=== PATIENT | male | born 1935 | race Caucasian/White ===

== ENCOUNTER 2017-01-12 10:37 | Emergency (ER) | payer MEDICARE, BC ==
[2017-01-12 11:51] LABS: CHLORIDE,CL 100 mmol/L (101-111); SODIUM,NA 136 mmol/L (135-145)
[2017-01-12 12:39] VITALS: BP 122/71
--- NOTE | 2017-01-12 15:23 | ER ---
SUBJECTIVE: The patient is an 81-year-old male with multiple chronic issues, who comes to the ER for sinus congestion. Yesterday, he had some mild upper chest wall pain, but nothing today. He does have an occasional cough. He usually sees Dr. Najera. He was sent to the ER today. He states sometimes pain shoot up into his sinuses around his head, especially his forehead, it usually happens in the afternoon around 03:00 p.m. He denies any falls or trauma. He denies any fevers. He has no chest pain now. No shortness of breath at this time. He is taking and tolerating his medicines okay. No syncope or near syncope. No headache right now. No ear pain. No changes in vision. PAST MEDICAL HISTORY: Significant for impaired vision, he wears glasses; hyperlipidemia; hypertension; CAD; [place]; pacemaker; chronic constipation; prostate disorder; he had a TURP. He has gout. He had arthroscopic knee surgery. He has hypothyroidism. He had a previous stroke. Depression. He has had chicken pox, measles, and mumps. He has hypothyroidism. He has GERD. Osteoarthritis. CURRENT MEDICATIONS: Include: 1. Lorazepam 0.5 mg p.o. b.i.d. 2. Levothyroxine 75 mcg daily. 3. Docusate sodium 2 tablets p.o. b.i.d. 4. Triamterene/HCTZ (37.5-25) one cap p.o. daily. 5. Lipitor 10 mg p.o. at bedtime. 6. Trazodone 100 mg p.o. at bedtime. 7. Extra-strength Tylenol p.r.n. 8. Aspirin 81 mg p.o. daily. 9. Coreg 25 mg p.o. b.i.d. 10.Cymbalta 60 mg p.o. daily. 11.Protonix 40 mg p.o. daily. 12.MiraLax p.r.n. 13.Oxycodone 10 mg p.o. b.i.d. ALLERGIES: He is allergic to codeine, he does not recall why. Simvastatin, also does not recall why. SOCIAL HISTORY: No tobacco, alcohol, or drug use. He lives at [facility]. He is retired. REVIEW OF SYSTEMS: No fevers or chills. No chest pain today. No shortness of breath. Did have some mild upper chest pain yesterday, and he also has some sinus symptoms and headache that goes to his forehead only in the afternoon. When asked when these symptoms occur and how long they have been occurring, he states for a very "longtime." When asked to clarify if this was days, weeks, or months, and he states "this has been going on for years." He denies any rash, any new bowel or bladder changes, falls, or trauma. He is able to take his medicines and tolerates them well. He is eating and drinking okay. OBJECTIVE: Vital Signs: Height is 1.75 m, weight is 88 kg. He is afebrile. Heart rate 79, blood pressure is 126/80, respiratory rate 16, oxygen is 99% on room air. General: Pleasant, no distress, very cooperative. He is appropriate. A and O x3. HEENT: Normocephalic and atraumatic. He does have some subjective fullness in his sinuses. No exact tenderness to palpation. The mastoids are unremarkable. Mucous membranes are moist. Conjunctivae are clear. Neck: Full range of motion. No nuchal rigidity. No lymphadenopathy. Chest: Clear. CV: RRR. Abdomen: Soft, benign. Back: No CVAT. Extremities: Lower extremities have no calf tenderness. LAB/STUDIES: An EKG shows a paced rhythm. He has first-degree AV block, no acute changes. A chest x-ray is obtained, it is does not show any acute findings. Blood work shows a normal white count. No anemia. Normal platelets. Normal differential. INR is 1.0. Electrolytes are quite unremarkable. Cardiac enzymes are also all normal. His BNP is unremarkable. He remained stable throughout his ER stay. I did discuss with Dr. Najera the patient's workup and findings. He would like to put the patient on Ceftin 500 mg p.o. b.i.d., for 1 week. He will see him next week in followup. The patient will continue with his current medicines. ASSESSMENT: 1. Acute versus chronic sinusitis. 2. Coronary artery disease with previous myocardial infarction. 3. Upper chest wall pain yesterday, workup unremarkable at this time. PLAN: Discharged back to home in stable condition, prescription for Ceftin 500 mg p.o. b.i.d. for 7 days given. Follow up with Dr. Najera next week. Continue with current medicines and care, fall precautions. Keep hydrated. Return for any emergent issues. [facility] /[id number]
--- NOTE | 2017-02-02 12:13 | EKG ---
01/12/2017 - MARY CORRALES - TIME OF EK hours. I reviewed the EKG and agree with the machine's reading. [facility] /[id number]
== END 2017-01-12 13:55 | disposition home or self-care (01) ==
LOC: DL.ED 10:37
DX: I25.10 Atherosclerotic heart disease of native coronary artery without angina pectoris (principal); I10 Essential (primary) hypertension; E03.9 Hypothyroidism, unspecified; I25.2 Old myocardial infarction; F32.9 Major depressive disorder, single episode, unspecified; M10.9 Gout, unspecified; K21.9 Gastro-esophageal reflux disease without esophagitis; M19.90 Unspecified osteoarthritis, unspecified site; Z88.5 Allergy status to narcotic agent; Z88.8 Allergy status to other drugs, medicaments and biological substances
CPT/HCPCS: 36415; 71020; 80053; 82550; 82553; 83880; 84484; 85025; 85610; 93005; 93010; 99284; 99285

== ENCOUNTER 2018-03-06 07:11 | Day surgery (SDC) | payer MEDICARE, BC ==
[~2018-03-06 07:11] MED LIST: Dextrose 5%-0.45% NaCl 1,000 ML IV SCH; Midazolam 1 MG/ML 2 ML SDV ONE; Sodium Chloride 0.9% 10 ML Syringe FLUSH PRN; fentaNYL 100 MCG/2 ML SDV ONE
[2018-03-06 08:26] VITALS: BP 143/85
--- NOTE | 2018-03-06 10:01 | PN ---
DATE: 03/06/2018 SUBJECTIVE: Dennis Monaco had some chest pain after arrival here, mostly on the left side, lasted for a few minutes with spontaneous resolution. On questioning, he admits to having this kind of pain on and off at least 4 to 5 times in the past month. Has not taken any nitroglycerin. No accompanying diaphoretic spells, palpitations, or shortness of breath. OBJECTIVE: Vital Signs: Stable vital signs. General: A bit anxious, alert, oriented, not short of breath at rest. Lungs: No adventitious sounds heard. Heart: S1 and S2, diminished in intensity. Abdomen: Soft. No areas of tenderness elicited. No CHF. PLAN: Chart reviewed. Medication list is scanned. Needs assessment of cardiac status before proceeding with EGD, to be scheduled later. The patient is sent to the emergency room for assessment of cardiac status and plan on EGD later dependent on his status. If no specific acute abnormalities noted, the patient to go back on Coumadin and to have EGD rescheduled later. Management plan discussed with the patient, and he is acceptable. IMPRESSION: Coronary artery disease. [facility] /[id number]
== END 2018-03-06 07:52 | disposition other institution (70) ==
LOC: DL.ENDO 07:11
PROVIDERS: ATTEND Internal Medicine Gastroenterology
DX: R10.33 Periumbilical pain (principal); R10.10 Upper abdominal pain, unspecified; R12 Heartburn; R13.10 Dysphagia, unspecified; R07.89 Other chest pain; Z53.8 Procedure and treatment not carried out for other reasons; E66.09 Other obesity due to excess calories; E78.5 Hyperlipidemia, unspecified; K59.00 Constipation, unspecified; I25.10 Atherosclerotic heart disease of native coronary artery without angina pectoris; K21.9 Gastro-esophageal reflux disease without esophagitis; Z95.810 Presence of automatic (implantable) cardiac defibrillator; Z87.891 Personal history of nicotine dependence; Z86.73 Personal history of transient ischemic attack (TIA), and cerebral infarction without residual deficits; Z79.82 Long term (current) use of aspirin; Z79.899 Other long term (current) drug therapy; Z88.8 Allergy status to other drugs, medicaments and biological substances; Z88.5 Allergy status to narcotic agent
CPT/HCPCS: J7042

== ENCOUNTER 2018-03-06 08:04 | Emergency (ER) | payer MEDICARE, BC ==
[2018-03-06] MEDS ORDERED: Sodium Chloride 0.9% 10 ML Syringe FLUSH PRN (08:05)
--- NOTE | 2018-03-06 08:05 | EDM.PDOC ---
ED HPI GENERAL MEDICAL PROBLEM - General Chief Complaint: Chest Pain Stated Complaint: CHEST PAIN Time Seen by Provider: 03/06/18 08:05 Source of Information: Reports: Patient, Old Records, RN, RN Notes Reviewed History Limitations: Reports: No Limitations - History of Present Illness INITIAL COMMENTS - FREE TEXT/NARRATIVE: Pt arrives from [facility] with c/o chest pain. Pt was being prepped for endoscopy this morning, and when the nurse started his IV and flushed it he felt a pain in the left upper chest. He denies radiating pain, shortness of breath, nausea, or vomiting. Denies fever or chills. Pt states he has had similar Sx's on/off for several years. Onset: Today Duration: Resolved Prior to Arrival, Waxing/Waning Location: Reports: Chest Quality: Reports: Ache Severity: Moderate Improves with: Reports: None Worsens with: Reports: None Associated Symptoms: Reports: No Other Symptoms Left Chest Pain Score (Numeric/FACES): 6 - Related Data Allergies Allergy/AdvReac Type Severity Reaction Status Date / Time codeine Allergy Cannot Verified 03/06/18 07:39 Remember fluticasone [From Flonase] Allergy Hallucinati Verified 03/06/18 08:25 ons simvastatin Allergy Cannot Verified 03/06/18 07:39 Remember Home Meds: Home Meds LORazepam 0.5 mg PO BID 06/14/15 [History] Sennosides/Docusate Sodium [Senna-Docusate Sodium] 2 each PO BID 06/14/15 [ History] Triamterene/Hydrochlorothiazid [Triamterene-HCTZ 37.5-25 MG] 1 cap PO DAILY [History] traZODone 100 mg PO BEDTIME 06/14/15 [History] Aspirin [Halfprin] 81 mg PO BRK 01/12/17 [History] Carvedilol [Coreg] 25 mg PO BID 01/12/17 [History] DULoxetine [Cymbalta] 60 mg PO DAILY 01/12/17 [History] Pantoprazole Sodium [Protonix] 40 mg PO DAILY 01/12/17 [History] Polyethylene Glycol 3350 [Miralax] 17 gm PO DAILY 01/12/17 [History] oxyCODONE HCl [Oxycodone HCl] 10 mg PO BID 01/12/17 [History] Levothyroxine [Synthroid] 1 tab PO DAILY 03/05/18 [History] Mirabegron [Myrbetriq] 1 tab PO DAILY 03/05/18 [History] Nitroglycerin [Nitrostat] 1 tab SL ASDIRECTED PRN 03/05/18 [History] Tamsulosin HCl 1 tab PO BEDTIME 03/05/18 [History] Tetrahydrozoline HCl [Visine] 1 drop EYEBOTH ASDIRECTED 03/05/18 [History] Tolterodine Tartrate [Detrol LA] 1 tab PO DAILY 03/05/18 [History] Warfarin Sodium [Jantoven] 0.5 - 1 tab PO ASDIRECTED 03/05/18 [History] atorvaSTATin [Lipitor] 1 tab PO BEDTIME 03/05/18 [History] Past Medical History HEENT History: Reports: Impaired Vision Other HEENT History: wears glasses Cardiovascular History: Reports: CAD, High Cholesterol, Hypertension, [place], Pacemaker Respiratory History: Reports: None Gastrointestinal History: Reports: Chronic Constipation, GERD Genitourinary History: Reports: Prostate Disorder Musculoskeletal History: Reports: None, Gout, Other (See Below) Other Musculoskeletal History: degenerative joint disease Neurological History: Reports: CVA Psychiatric History: Reports: Depression Endocrine/Metabolic History: Reports: Hypothyroidism Hematologic History: Reports: None Immunologic History: Reports: None Oncologic (Cancer) History: Reports: Prostate Dermatologic History: Reports: None - Infectious Disease History Infectious Disease History: Reports: Chicken Pox, Measles, Mumps - Past Surgical History HEENT Surgical History: Reports: Cataract Surgery Cardiovascular Surgical History: Reports: Coronary Artery Bypass, Pacer GI Surgical History: Reports: Hernia, Inguinal, Other (See Below) Other GI Surgeries/Procedures: gastrostomy Male Surgical History: Reports: Prostate Biopsy, TURP-Transurethral Resection of Prostate Musculoskeletal Surgical History: Reports: Arthroscopic Knee, Other (See Below) Other Musculoskeletal Surgeries/Procedures:: knee surg Social & Family History - Family History Family Medical History: Noncontributory - Caffeine Use Caffeine Use: Reports: None - Living Situation & Occupation Living situation: Reports: Assisted Living Occupation: Retired ED ROS GENERAL - Review of Systems Review Of Systems: ROS reveals no pertinent complaints other than HPI. ED EXAM, GENERAL - Physical Exam Exam: See Below Exam Limited By: No Limitations General Appearance: Alert, WD/WN, No Apparent Distress, Anxious Eye Exam: Bilateral Eye: Normal Inspection Ears: Hearing Grossly Normal Nose: Normal Inspection, Normal Mucosa, No Blood Throat/Mouth: Normal Inspection, Normal Lips, Normal Teeth, Normal Gums, Normal Oropharynx, Normal Voice, No Airway Compromise Head: Atraumatic, Normocephalic Neck: Normal Inspection, Supple, Non-Tender, Full Range of Motion. No: Lymphadenopathy (L), Lymphadenopathy (R) Respiratory/Chest: No Respiratory Distress, Lungs Clear, Normal Breath Sounds, No Accessory Muscle Use, Chest Non-Tender Cardiovascular: Normal Peripheral Pulses, Regular Rate, Rhythm, No Edema, No Gallop, No JVD, No Murmur, No Rub GI/Abdominal: Normal Bowel Sounds, Soft, Non-Tender, No Organomegaly, No Distention, No Abnormal Bruit (Male) Exam: Deferred Rectal (Males) Exam: Deferred Back Exam: Normal Inspection, Full Range of Motion. No: CVA Tenderness (L), CVA Tenderness (R) Extremities: Normal Inspection, Normal Range of Motion, Non-Tender, Normal Capillary Refill, No Pedal Edema Neurological: Alert, Oriented, CN II-XII Intact, Normal Cognition, Normal Gait, No Motor/Sensory Deficits Psychiatric: Anxious Skin Exam: Warm, Dry, Intact, Normal Color, No Rash EKG INTERPRETATION EKG Date: 03/06/18 Time: 08:10 Rhythm: Other (PACED) Rate (Beats/Min): 78 Comparison: No Change Course - Vital Signs Last Recorded V/S: Last Vital Signs Temp 37.0 C 03/06/18 08:04 Pulse 74 03/06/18 08:04 Resp 18 03/06/18 08:04 BP 154/85 H 03/06/18 08:12 Pulse Ox 96 03/06/18 08:04 - Orders/Labs/Meds Orders: Active Orders 24 hr Category Date Time Status EKG 12 Lead [EKG Documentation Completion] [RC] STAT Care 03/06/18 08:05 Active Peripheral IV Care [RC] . DIRECTED Care 03/06/18 08:06 Active Nitroglycerin [Nitrostat] Med 03/06/18 08:06 Active 0.4 mg SL Q5M PRN Sodium Chloride 0.9% [Saline Flush] Med 03/06/18 08:05 Active 10 ml FLUSH ASDIRECTED PRN Peripheral IV Insertion Adult [OM.PC] Stat Oth 03/06/18 08:05 Ordered Medication Orders Nitroglycerin (Nitrostat) 0.4 mg SL Q5M PRN PRN Reason: Chest Pain Last Admin: 03/06/18 08:12 Dose: 0.4 mg Sodium Chloride (Saline Flush) 10 ml FLUSH ASDIRECTED PRN PRN Reason: Keep Vein Open Last Admin: 03/06/18 08:11 Dose: 10 ml Labs: Laboratory Tests 03/06/18 03/06/18 03/06/18 Range/Units 08:20 08:20 08:20 WBC 7.7 (5.0-10.0) 10^3/uL RBC 4.57 L (4.6-6.2) 10^6/uL Hgb 13.7 L D (14.0-18.0) g/dL Hct 41.3 (40.0-54.0) % MCV 90.4 (80-100) fL MCH 30.0 (27.0-34.0) pg MCHC 33.2 (33.0-35.0) g/dL Plt Count 210 (150-450) 10^3/uL Neut % (Auto) 75.2 (42.2-75.2) % Lymph % (Auto) 11.9 L (20.5-50.1) % [place] % (Auto) 8.8 H (2-8) % Eos % (Auto) 3.6 H (1.0-3.0) % Baso % (Auto) 0.5 (0.0-1.0) % PT 10.8 (9.0-12.0) SEC INR 1.1 (0.9-1.2) Sodium 136 (135-145) mmol/L Potassium 3.6 (3.6-5.0) mmol/L Chloride 98 L (101-111) mmol/L Carbon Dioxide 29.0 (21.0-31.0) mmol/L Anion Gap 12.6 BUN 17 (7-18) mg/dL Creatinine 0.8 (0.6-1.3) mg/dL Est Cr Clr Drug Dosing 71.19 mL/min Estimated GFR (MDRD) > 60 BUN/Creatinine Ratio 21.25 Glucose 112 H (74-105) mg/dL Calcium 8.9 (8.4-10.2) mg/dl Total Bilirubin 1.0 (0.2-1.0) mg/dL AST 21 (10-42) IU/L ALT 14 (10-60) IU/L Alkaline Phosphatase 58 (42-121) IU/L Troponin I < 0.02 (0.00-0.02) ng/ml Total Protein 6.8 (6.7-8.2) g/dl Albumin 3.6 (3.2-5.5) g/dl Globulin 3.2 Albumin/Globulin Ratio 1.13 Amylase 69 (28-100) U/L Lipase 19 L (22-51) U/L Meds: Medications Generic Name Dose Route Start Last Admin Trade Name Freq PRN Reason Stop Dose Admin Nitroglycerin 0.4 mg 03/06/18 08:06 03/06/18 08:12 Nitrostat SL 0.4 mg Q5M PRN Administration Chest Pain Sodium Chloride 10 ml 03/06/18 08:05 03/06/18 08:11 Saline Flush FLUSH 10 ml ASDIRECTED PRN Administration Keep Vein Open Discontinued Medications Generic Name Dose Route Start Last Admin Trade Name Freq PRN Reason Stop Dose Admin Aspirin 324 mg 03/06/18 08:06 03/06/18 08:10 Aspirin PO 03/06/18 08:07 324 mg ONETIME ONE Administration - Radiology Interpretation Free Text/Narrative:: CXR: sternotomy wires, pacer w/leads, no acute process; see Rad. report. - Re-Assessments/Exams Free Text/Narrative Re-Assessment/Exam: 03/06/18 08:54 Pt now pain free. Negative cardiac evaluation. Plan to D/C pt home with outpt. f /u this week with Dr. Najera. Departure - Departure Time of Disposition: 08:55 Disposition: Home, Self-Care 01 Condition: Good Clinical Impression: Atypical chest pain Instructions: Nonspecific Chest Pain, [id number] Forms: ED Department Discharge Additional Instructions: Resume your regularly prescribed medications. Follow up in clinic with your primary doctor this week for recheck and rescheduling of your endoscopy. Return to ER if chest pain returns or is worse at any time. - My Orders Last 24 Hours: My Active Orders 03/06/18 08:05 EKG 12 Lead [EKG Documentation Completion] [RC] STAT Sodium Chloride 0.9% [Saline Flush] 10 ml FLUSH ASDIRECTED PRN Peripheral IV Insertion Adult [OM.PC] Stat 03/06/18 08:06 Peripheral IV Care [RC] . DIRECTED Nitroglycerin [Nitrostat] 0.4 mg SL Q5M PRN - Assessment/Plan Last 24 Hours: My Active Orders 03/06/18 08:05 EKG 12 Lead [EKG Documentation Completion] [RC] STAT Sodium Chloride 0.9% [Saline Flush] 10 ml FLUSH ASDIRECTED PRN Peripheral IV Insertion Adult [OM.PC] Stat 03/06/18 08:06 Peripheral IV Care [RC] . DIRECTED Nitroglycerin [Nitrostat] 0.4 mg SL Q5M PRN
[2018-03-06] MEDS ORDERED: Nitroglycerin 0.4 MG Tab.SL SL PRN (08:06)
[2018-03-06] MEDS ORDERED: Aspirin 81 MG Tab.Chew PO ONE (08:06)
[2018-03-06 08:12] VITALS: BP 154/85
[2018-03-06 08:45] LABS: CHLORIDE,CL 98 mmol/L (101-111); SODIUM,NA 136 mmol/L (135-145)
--- NOTE | 2018-03-06 08:46 | CR ---
Medical history: 83-year-old male emergency department with chest pain. Interpretation: Cardiac pacemaker (leads intact); sternotomy wires; external human geography faculty member leads an d oxygen cannula. Wide mediastinum presumably reflecting AP technique unchanged since PA film of 12 January 2017. Platelike atelectasis right lung base reflecting less than optimal inspiratory effort. No new signs of heart failure, lung mass, focal lobar pneumonia or lobar collapse. No pneumothorax. CONCLUSION: Atelectasis right base. No other signs of new cardiopulmonary abnormality when compared t o 12 January 2017.
--- NOTE | 2018-03-11 07:38 | EKG ---
03/06/2018- MARY CORARLES - FINDINGS: A 12-lead EKG shows atrial ventricular paced rhythm, so no further interpretation done at this time. [facility] /[id number]
== END 2018-03-06 09:08 | disposition home or self-care (01) ==
LOC: DL.ED 08:04
DX: R07.89 Other chest pain (principal); I10 Essential (primary) hypertension; I25.2 Old myocardial infarction; Z88.5 Allergy status to narcotic agent
CPT/HCPCS: 36415; 71045; 80053; 82150; 83690; 84484; 85025; 85610; 93005; 93010; 99285; A9270; J7050

== ENCOUNTER → 2018-03-08 | Day surgery (SDC) | payer MEDICARE, BC ==
[~2018-03-08] MED LIST changes: +Midazolam 1 MG/ML 2 ML SDV IV ONE; -Sodium Chloride 0.9% 10 ML Syringe FLUSH PRN; +fentaNYL 100 MCG/2 ML SDV IV ONE
--- NOTE | 2018-03-08 10:34 | OR ---
DATE: 03/08/2018 PROCEDURES: Esophagogastroduodenoscopy and multiple pinch biopsies. INSTRUMENT USED: GIF-H180 Olympus video panendoscope. PREMEDICATIONS: Fentanyl 50 mcg intravenous, Versed 1 mg intravenous. Nasal 2 L O2 cannula. The procedure was done under pulse oximetry, BP recording, and machine silk screen printer. INDICATION: The patient with abdominal pain, dysphagia unexplained, and not responsive to medical measures, on PPI. DESCRIPTION OF PROCEDURE: Esophagogastroduodenoscopy is performed for detection of any active erosive lesions. Osei esophagus and/or malignancy also under consideration. H. pylori status to be determined, esophageal dilatations if indicated, endoscopic hemostasis therapy if needed. The scope was passed with ease. Adequate visualization of the esophagus was made from proximal to distal areas. No upper esophageal lesions identified. No distal esophageal stricture. No uphill or downhill esophageal varices. No Se[place]-Ge tear. No evidence of erosive esophagitis by [place] criteria. No esophageal polyp or tumor mass identified. Tertiary contractions of the esophagus were noted. Z-line was seen at around 40 cm distal to the oral verge, configuration consistent with grade 1 by ZAP classification. No proximal gastric varices noted. Gastric fundus examination by retroflexion showed diminutive benign-appearing polyps. No gastric ulcer, malignant mass, or vascular ectasia identified. Duodenal bulb showed no ulcer. Visualized second part of the duodenum was unremarkable. Multiple pinch biopsies were taken from the gastric antrum and proximal body and sent for PyloriTek test for H. pylori, and if negative in an hour, tissues to be sent for histopathology. No bleeding was noted from any of the visualized areas at the completion of examination. Photographs were taken of the duodenal bulb, gastric antrum, fundus, and distal esophagus. IMPRESSION: 1. Presbyesophagus. 2. Diminutive gastric fundic polyps. The patient tolerated the procedure well. [facility] /[id number]
[2018-03-08 10:46] VITALS: BP 153/97
== END | disposition home or self-care (01) ==
LOC: DL.ENDO 06:16
PROVIDERS: ATTEND Internal Medicine Gastroenterology
DX: R13.10 Dysphagia, unspecified (principal); K29.50 Unspecified chronic gastritis without bleeding; K22.8 Other specified diseases of esophagus; K31.7 Polyp of stomach and duodenum; E66.09 Other obesity due to excess calories; I25.10 Atherosclerotic heart disease of native coronary artery without angina pectoris; E78.5 Hyperlipidemia, unspecified; K21.9 Gastro-esophageal reflux disease without esophagitis; Z87.891 Personal history of nicotine dependence; Z79.82 Long term (current) use of aspirin; Z88.5 Allergy status to narcotic agent; Z88.8 Allergy status to other drugs, medicaments and biological substances
CPT/HCPCS: 43239; 87077; J2250; J3010; J7042; 88305; 88342

== ENCOUNTER 2021-11-20 09:36 | Inpatient (IN) | payer MEDICARE, BC ==
[2021-11-20 11:20] LABS: CORONAVIRUS COVID-19 NAA POSITIVE (NEGATIVE)
[2021-11-20 11:35] LABS: PTT,PARTIAL THROMBOPLSTIN TIME 32.3 SEC (22.0-34.0)
[2021-11-20 11:39] LABS: ANION GAP 12.7 mEq/L (7-13); CHLORIDE,CL 96 mmol/L (98-107); SODIUM,NA 135 mmol/L (136-145)
[2021-11-20] MEDS ORDERED: Dexamethasone 4 MG/ML SDV IVPUSH ONE (11:50)
[2021-11-20] MEDS ORDERED: Albuterol 6.7 GM Inhaler INH ONE (11:51)
[2021-11-20] MEDS ORDERED: Furosemide 20 MG/2 ML VIAL IVPUSH ONE (12:06)
[2021-11-20] MEDS ORDERED: Non-Formulary Medication 1 Each (Sennosides [Senokot] 8.6 MG Tablet) PO PRN (14:37)
[2021-11-20] MEDS ORDERED: Acetaminophen 500 MG Tab PO PRN ×2 (14:37)
[2021-11-20] MEDS ORDERED: Magnesium Hydroxide 400 MG/5 ML Susp 30 ML Cup PO PRN (14:37)
[2021-11-20] MEDS ORDERED: Docusate Sodium 100 MG Cap PO PRN (14:37)
[2021-11-20] MEDS ORDERED: Ondansetron 4 MG/2 ML SDV IVPUSH PRN (14:45)
[2021-11-20] MEDS ORDERED: REMDESIVIR 200 MG in Sodium Chloride 0.9% 250 ML IV ONE (15:00)
[2021-11-20] MEDS ORDERED: Water For Injection, Sterile 40 ML ONE (15:15)
[2021-11-20] MEDS: Pantoprazole 40 MG Tab.CR PO SCH (15:31)
[2021-11-20] MEDS: Lutein/Minerals/Vit A,C & E Tab PO SCH (17:33)
[2021-11-20] MEDS ORDERED: Non-Formulary Medication 1 Each (Vit A/Vit C/Vit E/Zinc/Copper [Preservision Areds Softgel PO SCH (18:00)
[2021-11-20] MEDS: traZODone 50 MG Tab PO SCH (20:46)
[2021-11-20] MEDS: Carvedilol 25 MG Tab PO SCH (20:46)
[2021-11-20] MEDS: Tamsulosin 0.4 MG Cap.ER PO SCH (20:46)
[2021-11-20] MEDS: atorvaSTATin 10 MG Tab PO SCH (20:47)
[2021-11-20] MEDS: oxyCODONE 5 MG Tab PO SCH (20:47)
[2021-11-21] MEDS: Levothyroxine 112 MCG Tab PO SCH (06:08)
[2021-11-21] MEDS: Pantoprazole 40 MG Tab.CR PO SCH ×2 (06:08→15:32)
[2021-11-21 07:27] LABS: ANION GAP 13.7 mEq/L (7-13); CHLORIDE,CL 96 mmol/L (98-107); SODIUM,NA 136 mmol/L (136-145)
[2021-11-21] MEDS ORDERED: Potassium Chloride 10 MEQ Tab.ER PO ONE (07:51)
[2021-11-21] MEDS: Lutein/Minerals/Vit A,C & E Tab PO SCH ×2 (09:39→18:19)
[2021-11-21] MEDS: Aspirin 81 MG Tab.EC PO SCH (09:41)
[2021-11-21] MEDS: Loratadine 10 MG Tab PO SCH (09:42)
[2021-11-21] MEDS: Hydrochlorothiazide/Triamterene 25-37.5 Tab PO SCH (09:42)
[2021-11-21] MEDS: Carvedilol 25 MG Tab PO SCH ×2 (09:43→20:20)
[2021-11-21] MEDS: oxyCODONE 5 MG Tab PO SCH ×2 (09:43→20:19)
[2021-11-21] MEDS: Cholecalciferol (Vitamin D3) 25 MCG Tab PO SCH (09:45)
[2021-11-21] MEDS: DULoxetine 30 MG Cap PO SCH (09:45)
[2021-11-21] MEDS: LORazepam 0.5 MG Tab PO SCH (09:46)
[2021-11-21] MEDS: Dexamethasone 4 MG/ML SDV IVPUSH SCH (09:49)
[2021-11-21] MEDS: Triamcinolone Acetonide 0.1% Crm 15 GM Tube TOP SCH (09:53)
[2021-11-21] MEDS: Polyethylene Glycol 3350 Powder 17 GM Packet PO SCH (09:55)
[2021-11-21] MEDS: Carboxymethylcellulose Sodium 1% Ophth Gel 0.4 ML UD EYEBOTH PRN (11:14)
[2021-11-21] MEDS ORDERED: Warfarin 5 MG Tab PO ONE (14:00)
[2021-11-21] MEDS ORDERED: Warfarin 5 MG Tab PO SCH (14:00)
[2021-11-21] MEDS: REMDESIVIR 100 MG in Sodium Chloride 0.9% 100 ML IV SCH (14:37)
[2021-11-21] MEDS: atorvaSTATin 10 MG Tab PO SCH (20:19)
[2021-11-21] MEDS: traZODone 50 MG Tab PO SCH (20:19)
[2021-11-21] MEDS: Tamsulosin 0.4 MG Cap.ER PO SCH (20:19)
[2021-11-22] MEDS: Levothyroxine 112 MCG Tab PO SCH (06:05)
[2021-11-22] MEDS: Pantoprazole 40 MG Tab.CR PO SCH ×2 (06:05→16:11)
[2021-11-22 07:05] LABS: ANION GAP 11.8 mEq/L (7-13); CHLORIDE,CL 97 mmol/L (98-107); SODIUM,NA 134 mmol/L (136-145)
[2021-11-22] MEDS: Polyethylene Glycol 3350 Powder 17 GM Packet PO SCH (09:05)
[2021-11-22] MEDS: Aspirin 81 MG Tab.EC PO SCH (09:06)
[2021-11-22] MEDS: Lutein/Minerals/Vit A,C & E Tab PO SCH ×2 (09:06→17:57)
[2021-11-22] MEDS: LORazepam 0.5 MG Tab PO SCH (09:08)
[2021-11-22] MEDS: Carvedilol 25 MG Tab PO SCH ×2 (09:08→21:21)
[2021-11-22] MEDS: oxyCODONE 5 MG Tab PO SCH ×2 (09:09→21:22)
[2021-11-22] MEDS: Hydrochlorothiazide/Triamterene 25-37.5 Tab PO SCH (09:12)
[2021-11-22] MEDS: Cholecalciferol (Vitamin D3) 25 MCG Tab PO SCH (09:12)
[2021-11-22] MEDS: DULoxetine 30 MG Cap PO SCH (09:12)
[2021-11-22] MEDS: Loratadine 10 MG Tab PO SCH (09:13)
[2021-11-22] MEDS: Dexamethasone 4 MG/ML SDV IVPUSH SCH (09:15)
[2021-11-22] MEDS: Carboxymethylcellulose Sodium 1% Ophth Gel 0.4 ML UD EYEBOTH PRN ×2 (09:20→21:22)
[2021-11-22] MEDS: Triamcinolone Acetonide 0.1% Crm 15 GM Tube TOP SCH (09:21)
[2021-11-22] MEDS ORDERED: guaiFENesin/Dextromethorphan 100-10 MG/5 ML Soln 5 ML Cup PO PRN (12:29)
[2021-11-22] MEDS ORDERED: Warfarin 2.5 MG Tab PO SCH (14:00)
[2021-11-22] MEDS ORDERED: Warfarin 2.5 MG Tab PO ONE (14:00)
[2021-11-22] MEDS: REMDESIVIR 100 MG in Sodium Chloride 0.9% 100 ML IV SCH (14:50)
[2021-11-22] MEDS: Tamsulosin 0.4 MG Cap.ER PO SCH (21:21)
[2021-11-22] MEDS: traZODone 50 MG Tab PO SCH (21:21)
[2021-11-22] MEDS: atorvaSTATin 10 MG Tab PO SCH (21:22)
[2021-11-23] MEDS: Pantoprazole 40 MG Tab.CR PO SCH ×2 (06:01→16:18)
[2021-11-23] MEDS: Levothyroxine 112 MCG Tab PO SCH (06:01)
[2021-11-23 06:24] LABS: ANION GAP 11.7 mEq/L (7-13); CHLORIDE,CL 97 mmol/L (98-107); SODIUM,NA 133 mmol/L (136-145)
[2021-11-23] MEDS ORDERED: Potassium Chloride 10 MEQ Tab.ER PO ONE (07:30)
[2021-11-23] MEDS: Cholecalciferol (Vitamin D3) 25 MCG Tab PO SCH (09:37)
[2021-11-23] MEDS: DULoxetine 30 MG Cap PO SCH (09:37)
[2021-11-23] MEDS: Loratadine 10 MG Tab PO SCH (09:37)
[2021-11-23] MEDS: Lutein/Minerals/Vit A,C & E Tab PO SCH ×2 (09:38→17:16)
[2021-11-23] MEDS: LORazepam 0.5 MG Tab PO SCH (09:38)
[2021-11-23] MEDS: Hydrochlorothiazide/Triamterene 25-37.5 Tab PO SCH (09:38)
[2021-11-23] MEDS: Aspirin 81 MG Tab.EC PO SCH (09:38)
[2021-11-23] MEDS: Carvedilol 25 MG Tab PO SCH ×2 (09:39→20:23)
[2021-11-23] MEDS: oxyCODONE 5 MG Tab PO SCH ×2 (09:40→20:22)
[2021-11-23] MEDS: Polyethylene Glycol 3350 Powder 17 GM Packet PO SCH (09:41)
[2021-11-23] MEDS: Triamcinolone Acetonide 0.1% Crm 15 GM Tube TOP SCH (09:43)
[2021-11-23] MEDS: Dexamethasone 4 MG/ML SDV IVPUSH SCH (09:44)
[2021-11-23] MEDS: Carboxymethylcellulose Sodium 1% Ophth Gel 0.4 ML UD EYEBOTH PRN ×2 (09:47→20:21)
[2021-11-23] MEDS ORDERED: REMDESIVIR 100 MG in Sodium Chloride 0.9% 100 ML IV SCH (12:00)
[2021-11-23] MEDS ORDERED: Warfarin 2.5 MG Tab PO ONE (14:00)
[2021-11-23] MEDS: traZODone 50 MG Tab PO SCH (20:21)
[2021-11-23] MEDS: Tamsulosin 0.4 MG Cap.ER PO SCH (20:22)
[2021-11-23] MEDS: atorvaSTATin 10 MG Tab PO SCH (20:23)
[2021-11-24] MEDS: Levothyroxine 112 MCG Tab PO SCH (05:34)
[2021-11-24] MEDS: Pantoprazole 40 MG Tab.CR PO SCH (05:34)
[2021-11-24 07:29] LABS: CHLORIDE,CL 97 mmol/L (98-107); SODIUM,NA 135 mmol/L (136-145)
[2021-11-24] MEDS ORDERED: REMDESIVIR 100 MG in Sodium Chloride 0.9% 100 ML IV SCH (09:00)
[2021-11-24] MEDS: Polyethylene Glycol 3350 Powder 17 GM Packet PO SCH (09:11)
[2021-11-24 09:14] VITALS: BP 123/84; PULSE 74
[2021-11-24] MEDS: Loratadine 10 MG Tab PO SCH (09:14)
[2021-11-24] MEDS: Carvedilol 25 MG Tab PO SCH (09:14)
[2021-11-24] MEDS: Cholecalciferol (Vitamin D3) 25 MCG Tab PO SCH (09:15)
[2021-11-24] MEDS: Lutein/Minerals/Vit A,C & E Tab PO SCH (09:16)
[2021-11-24] MEDS: Aspirin 81 MG Tab.EC PO SCH (09:16)
[2021-11-24] MEDS: oxyCODONE 5 MG Tab PO SCH (09:16)
[2021-11-24] MEDS: DULoxetine 30 MG Cap PO SCH (09:17)
[2021-11-24] MEDS: Hydrochlorothiazide/Triamterene 25-37.5 Tab PO SCH (09:18)
[2021-11-24] MEDS: LORazepam 0.5 MG Tab PO SCH (09:18)
[2021-11-24] MEDS: Dexamethasone 4 MG/ML SDV IVPUSH SCH (09:20)
[2021-11-24] MEDS: Carboxymethylcellulose Sodium 1% Ophth Gel 0.4 ML UD EYEBOTH PRN (09:24)
[2021-11-24] MEDS: Triamcinolone Acetonide 0.1% Crm 15 GM Tube TOP SCH (09:25)
[2021-11-24] MEDS ORDERED: Warfarin 5 MG Tab PO ONE (14:00)
== END 2021-11-24 11:45 | disposition home or self-care (01) | DRG 177 ==
LOC: DL.ED 09:36 → DL.MS 13:05 → OBSVTOIN 14:49
PROVIDERS: ADMIT Internal Medicine; ATTEND Internal Medicine
PROC: 3E0333Z Introduction of Anti-inflammatory into Peripheral Vein, Percutaneous Approach (ICD-10-PCS; principal; 2021-11-20)
PROC: XW033E5 Introduction of Remdesivir Anti-infective into Peripheral Vein, Percutaneous Approach, New Technology Group 5 (ICD-10-PCS; 2021-11-20)
DX: J02.9 Acute pharyngitis, unspecified (principal); R05.9 Cough, unspecified; R53.81 Other malaise; U07.1 COVID-19; R09.02 Hypoxemia; J96.01 Acute respiratory failure with hypoxia; E78.00 Pure hypercholesterolemia, unspecified; H54.7 Unspecified visual loss; I10 Essential (primary) hypertension; I25.10 Atherosclerotic heart disease of native coronary artery without angina pectoris; Z95.810 Presence of automatic (implantable) cardiac defibrillator; Z95.1 Presence of aortocoronary bypass graft; K59.09 Other constipation; K21.9 Gastro-esophageal reflux disease without esophagitis; F32.A Depression, unspecified; M19.90 Unspecified osteoarthritis, unspecified site; M10.9 Gout, unspecified; E03.9 Hypothyroidism, unspecified; Z98.49 Cataract extraction status, unspecified eye; Z85.46 Personal history of malignant neoplasm of prostate; Z88.5 Allergy status to narcotic agent; Z88.8 Allergy status to other drugs, medicaments and biological substances; Z79.82 Long term (current) use of aspirin; Z79.899 Other long term (current) drug therapy; Z79.890 Hormone replacement therapy; Z79.01 Long term (current) use of anticoagulants; I25.2 Old myocardial infarction; Z95.0 Presence of cardiac pacemaker; Z86.73 Personal history of transient ischemic attack (TIA), and cerebral infarction without residual deficits; Z28.82 Immunization not carried out because of caregiver refusal
CPT/HCPCS: 0240U; 36415; 71045; 80053; 82150; 83605; 83690; 83880; 84484; 85025; 85610; 85730; 86140; 93005; 96374; 96375; 99285; 99285-25; A9270-GY; G0378; J0248; J1100; J1940; J7050

== ENCOUNTER 2022-09-23 09:45 | Inpatient (IN) | payer MEDICARE, BC ==
[2022-09-23] MEDS ORDERED: Piperacillin/Tazobactam 3.375 GM in Sodium Chloride 0.9% 100 ML IV ONE (10:30)
[2022-09-23 10:45] LABS: PTT,PARTIAL THROMBOPLSTIN TIME 46.2 SEC (22.0-34.0)
[2022-09-23 10:49] LABS: CORONAVIRUS COVID-19 NAA NEGATIVE (NEGATIVE); RESPIRATORY SYNCYTIAL VIR NAA NEGATIVE (NEGATIVE)
[2022-09-23 10:55] LABS: CHLORIDE,CL 99 mmol/L (98-107); SODIUM,NA 136 mmol/L (136-145)
[2022-09-23 11:00] LABS: ESTIMATED GFR 75 mL/min (>=60)
[2022-09-23] MEDS ORDERED: Sodium Chloride 0.9% 1,000 ML IV ONE (11:00)
[2022-09-23] MEDS ORDERED: Magnesium Hydroxide 400 MG/5 ML Susp 30 ML Cup PO PRN (12:53)
[2022-09-23] MEDS ORDERED: Polyethylene Glycol 3350 Powder 17 GM Packet PO PRN (12:53)
[2022-09-23] MEDS ORDERED: Ketorolac 30 MG/ML SDV IVPUSH PRN (12:53)
[2022-09-23] MEDS ORDERED: Albuterol/Ipratropium 3.0-0.5 MG/3 ML Neb Soln NEB PRN (12:53)
[2022-09-23] MEDS ORDERED: Ondansetron 4 MG/2 ML SDV IVPUSH PRN (12:53)
[2022-09-23] MEDS ORDERED: Benzonatate 100 MG Cap PO PRN (12:59)
[2022-09-23] MEDS ORDERED: guaiFENesin/Dextromethorphan 100-10 MG/5 ML Soln 5 ML Cup PO PRN (12:59)
[2022-09-23] MEDS ORDERED: Dextrose 5%-0.45% NaCl 1,000 ML IV SCH (13:00)
[2022-09-23] MEDS ORDERED: hydrALAZINE 20 MG/ML SDV IVPUSH PRN (13:04)
[2022-09-23] MEDS ORDERED: Metoprolol Tartrate 5 MG/5 ML SDV IVPUSH PRN (13:04)
[2022-09-23] MEDS: Pantoprazole 40 MG Vial IVPUSH SCH ×2 (13:28→21:16)
[2022-09-23] MEDS: Piperacillin/Tazobactam 3.375 GM in Sodium Chloride 0.9% 100 ML IV SCH ×2 (17:41→23:38)
[2022-09-23] MEDS ORDERED: Warfarin 2 MG Tab PO ONE (18:00)
[2022-09-23] MEDS ORDERED: Acetaminophen 650 MG Supp RECTAL PRN (19:29)
[2022-09-23] MEDS ORDERED: Oxymetazoline 0.05% Nasal Spray 30 ML Bottle NASBOTH PRN (19:30)
[2022-09-23] MEDS: Saccharomyces Boulardii (Probiotic) 250 MG Cap PO SCH (20:57)
[2022-09-23] MEDS: Benzonatate 100 MG Cap PO SCH (20:57)
[2022-09-24] MEDS: HYDROmorphone 0.5 MG/0.5 ML Syringe IVPUSH PRN ×3 (02:47→11:28)
[2022-09-24] MEDS: Piperacillin/Tazobactam 3.375 GM in Sodium Chloride 0.9% 100 ML IV SCH ×3 (06:12→17:51)
[2022-09-24 06:44] LABS: ANION GAP 11.6 mEq/L (7-13)
[2022-09-24] MEDS: Sodium Chloride 0.9% 10 ML Syringe FLUSH PRN ×2 (09:03→11:29)
[2022-09-24] MEDS: Pantoprazole 40 MG Vial IVPUSH SCH ×2 (09:04→21:13)
[2022-09-24] MEDS: Saccharomyces Boulardii (Probiotic) 250 MG Cap PO SCH ×2 (09:08→21:11)
[2022-09-24] MEDS: Benzonatate 100 MG Cap PO SCH ×2 (09:08→21:11)
[2022-09-24] MEDS ORDERED: Atropine 1% Ophth Soln 5 ML BOTTLE SL PRN (11:00)
[2022-09-24] MEDS ORDERED: Ibuprofen 400 MG Tab PO PRN (11:20)
[2022-09-24] MEDS ORDERED: Warfarin 2.5 MG Tab PO SCH (14:00)
[2022-09-24] MEDS ORDERED: Benzocaine/Cetylpyridinium/Menthol Lozenge MUCMEM PRN (19:18)
[2022-09-24] MEDS ORDERED: Fluconazole/Normal Saline 200 MG in Premix Bag 1 BAG IV ONE (21:00)
[2022-09-25] MEDS: Piperacillin/Tazobactam 3.375 GM in Sodium Chloride 0.9% 100 ML IV SCH ×5 (00:13→23:53)
[2022-09-25] MEDS: Carbamide Peroxide 6.5% Otic Soln 15 ML Bottle EARLF SCH ×3 (01:51→21:37)
[2022-09-25] MEDS: HYDROmorphone 0.5 MG/0.5 ML Syringe IVPUSH PRN ×2 (02:25→10:26)
[2022-09-25 07:15] LABS: ANION GAP 11.3 mEq/L (7-13); CHLORIDE,CL 105 mmol/L (98-107); SODIUM,NA 143 mmol/L (136-145)
[2022-09-25 07:18] LABS: ESTIMATED GFR 88 mL/min (>=60)
[2022-09-25] MEDS: Acetaminophen 325 MG Tab PO PRN ×2 (09:00→21:34)
[2022-09-25] MEDS: Benzonatate 100 MG Cap PO SCH ×2 (09:02→21:35)
[2022-09-25] MEDS: Saccharomyces Boulardii (Probiotic) 250 MG Cap PO SCH ×2 (09:02→21:35)
[2022-09-25] MEDS: Pantoprazole 40 MG Vial IVPUSH SCH ×2 (09:11→21:46)
[2022-09-25] MEDS: Potassium Chloride 20 MEQ in Premix Bag 1 BAG IV SCH ×2 (09:13→21:50)
[2022-09-25] MEDS: Fluconazole/Normal Saline 100 MG in Premix Bag 1 BAG IV SCH (10:04)
[2022-09-25] MEDS ORDERED: BIOTENE SL PRN (10:41)
[2022-09-25] MEDS ORDERED: Emollient Combination No.71 177 ML Bottle TOP PRN (10:42)
[2022-09-25] MEDS ORDERED: Warfarin 5 MG Tab PO SCH (14:00)
[2022-09-25] MEDS: Sodium Chloride 0.9% 10 ML Syringe FLUSH PRN ×2 (21:45→23:53)
[2022-09-26] MEDS: HYDROmorphone 0.5 MG/0.5 ML Syringe IVPUSH PRN (05:48)
[2022-09-26] MEDS: Sodium Chloride 0.9% 10 ML Syringe FLUSH PRN ×3 (05:48→21:54)
[2022-09-26] MEDS: Piperacillin/Tazobactam 3.375 GM in Sodium Chloride 0.9% 100 ML IV SCH (05:55)
[2022-09-26 07:03] LABS: ANION GAP 15.2 mEq/L (7-13)
[2022-09-26] MEDS: Benzonatate 100 MG Cap PO SCH ×2 (08:50→21:38)
[2022-09-26] MEDS: Pantoprazole 40 MG Vial IVPUSH SCH ×2 (08:50→21:44)
[2022-09-26] MEDS: Saccharomyces Boulardii (Probiotic) 250 MG Cap PO SCH ×2 (08:50→21:38)
[2022-09-26] MEDS: Fluticasone NASAL Spray 16 GM Bottle NASBOTH SCH (08:50)
[2022-09-26] MEDS: Carbamide Peroxide 6.5% Otic Soln 15 ML Bottle EARLF SCH ×2 (09:00→21:51)
[2022-09-26] MEDS: Fluconazole/Normal Saline 100 MG in Premix Bag 1 BAG IV SCH (09:15)
[2022-09-26] MEDS: Potassium Chloride 20 MEQ in Premix Bag 1 BAG IV SCH ×2 (10:22→21:54)
[2022-09-26] MEDS ORDERED: Levofloxacin 250 MG Tab PO ONE (12:00)
[2022-09-27] MEDS: Acetaminophen 325 MG Tab PO PRN (05:07)
[2022-09-27] MEDS ORDERED: FLUCONAZOLE ONE (08:09)
[2022-09-27] MEDS ORDERED: SODIUM CHLORIDE ONE (08:09)
[2022-09-27 08:16] VITALS: PULSE 73
[2022-09-27] MEDS: Pantoprazole 40 MG Vial IVPUSH SCH (08:42)
[2022-09-27] MEDS: Sodium Chloride 0.9% 10 ML Syringe FLUSH PRN ×3 (08:45→08:58)
[2022-09-27] MEDS: Saccharomyces Boulardii (Probiotic) 250 MG Cap PO SCH (08:46)
[2022-09-27] MEDS: Benzonatate 100 MG Cap PO SCH (08:46)
[2022-09-27] MEDS: Fluconazole/Normal Saline 100 MG in Premix Bag 1 BAG IV SCH (08:48)
[2022-09-27] MEDS ORDERED: Levofloxacin 250 MG Tab PO SCH (09:00)
[2022-09-27] MEDS: Fluticasone NASAL Spray 16 GM Bottle NASBOTH SCH (09:57)
[2022-09-27] MEDS: Carbamide Peroxide 6.5% Otic Soln 15 ML Bottle EARLF SCH (09:57)
[2022-09-27 12:12] VITALS: BP 158/83
== END 2022-09-27 14:00 | DRG 177 ==
LOC: DL.ED 09:45 → DL.MS 12:30 → INTOOBSV 12:30 → DL.ED 12:31 → OBSVTOIN 12:50
PROVIDERS: ADMIT Internal Medicine; ATTEND Internal Medicine
DX: J69.0 Pneumonitis due to inhalation of food and vomit (principal); I69.391 Dysphagia following cerebral infarction; R13.10 Dysphagia, unspecified; J96.01 Acute respiratory failure with hypoxia; J02.9 Acute pharyngitis, unspecified; E87.6 Hypokalemia; R79.1 Abnormal coagulation profile; I10 Essential (primary) hypertension; K21.9 Gastro-esophageal reflux disease without esophagitis; M54.50 Low back pain, unspecified; G89.29 Other chronic pain; E78.5 Hyperlipidemia, unspecified; Z66 Do not resuscitate; Z20.822 Contact with and (suspected) exposure to COVID-19; Z88.8 Allergy status to other drugs, medicaments and biological substances; K59.09 Other constipation; I25.10 Atherosclerotic heart disease of native coronary artery without angina pectoris; Z79.890 Hormone replacement therapy; E03.9 Hypothyroidism, unspecified; F32.A Depression, unspecified; E78.00 Pure hypercholesterolemia, unspecified; R73.9 Hyperglycemia, unspecified; H54.7 Unspecified visual loss; R13.12 Dysphagia, oropharyngeal phase; H61.22 Impacted cerumen, left ear; I25.2 Old myocardial infarction; Z95.1 Presence of aortocoronary bypass graft; I69.321 Dysphasia following cerebral infarction; Z79.01 Long term (current) use of anticoagulants; Z79.899 Other long term (current) drug therapy; Z87.891 Personal history of nicotine dependence; Z95.810 Presence of automatic (implantable) cardiac defibrillator; Z85.46 Personal history of malignant neoplasm of prostate; Z88.5 Allergy status to narcotic agent; Z79.82 Long term (current) use of aspirin
CPT/HCPCS: 0241U; 36415; 51702; 71045; 80048; 80053; 83605; 83735; 83880; 84484; 85025; 85610; 85730; 86140; 87040; 87070; 87077; 87081; 87186; 87205; 87430; 92610; 93005; 96365; 97110; 97161; 97165; 97530; 99285; A9270-GY; C9113; J1170; J1450; J2543; J3480; J3490; J7030; J7620-GY

== ENCOUNTER 2023-10-16 16:14 | Emergency (ER) | payer MEDICARE, BC ==
[2023-10-16] MEDS ORDERED: Sodium Chloride 0.9% 10 ML Syringe FLUSH PRN (16:53)
[2023-10-16 17:08] LABS: BASOPHILS PERCENT AUTO 0.4 % (0.0-1.0); EOSINOPHILS PERCENT AUTO 2.4 % (1.0-3.0); HEMATOCRIT 44.1 % (40.0-54.0); HEMOGLOBIN 14.3 g/dL (14.0-18.0); LYMPHOCYTES PERCENT AUTO 12.7 % (20.5-50.1); MEAN CORPUSCULAR HEMOGLOBIN 29.9 pg (27.0-34.0); MEAN CORPUSCULAR HGB CONC 32.4 g/dL (33.0-35.0); MEAN CORPUSCULAR VOLUME 92.1 fL (80-100); MONOCYTES PERCENT AUTO 8.1 % (2-8); NEUTROPHILS PERCENT AUTO 76.4 % (42.2-75.2); PLATELET COUNT,PLT 245 10^3/uL (150-450); RED BLOOD CELL COUNT 4.79 10^6/uL (4.6-6.2); WHITE BLOOD CELL COUNT,WBC 11.1 10^3/uL (5.0-10.0)
[2023-10-16 17:15] LABS: CORONAVIRUS COVID-19 NAA NEGATIVE (NEGATIVE); INFLUENZA A NAA NEGATIVE (NEGATIVE); INFLUENZA B NAA NEGATIVE (NEGATIVE); RESPIRATORY SYNCYTIAL VIR NAA NEGATIVE (NEGATIVE)
[2023-10-16 17:16] LABS: INR 4.7 (0.9-1.2); PROTHROMBIN TIME 45.8 SEC (9.0-12.0); PTT,PARTIAL THROMBOPLSTIN TIME 58.5 SEC (22.0-34.0)
[2023-10-16 17:22] LABS: A/G RATIO 0.9; ALANINE AMINOTRANSFERASE,ALT 20 U/L (16-63); ALBUMIN 3.6 g/dL (3.4-5.0); ALKALINE PHOSPHATASE 82 U/L (46-116); ANION GAP 8.6 mEq/L (7-13); ASPARTATE AMNIOTRANSFERASE,AST 20 U/L (15-37); BILIRUBIN TOTAL 0.6 mg/dL (0.2-1.0); BLOOD UREA NITROGEN,BUN 20 mg/dL (7-18); BUN/CREATININE RATIO 21.7 (No establ ref range); C-REACTIVE PROTEIN 2.74 ng/dL (<=0.50); CALCIUM 8.8 mg/dL (8.5-10.1); CARBON DIOXIDE,CO2 34 mmol/L (21-32); CHLORIDE,CL 98 mmol/L (98-107); CREATININE 0.92 mg/dL (0.70-1.30); EST CRCL DRUG DOSING (CG) 56.57 mL/min; GLUCOSE RANDOM 106 mg/dL (70-99); LACTIC ACID 1.3 mmol/L (0.4-2.0); MAGNESIUM 1.9 mg/dL (1.8-2.4); POTASSIUM,K 3.6 mmol/L (3.5-5.1); PROTEIN TOTAL,TP 7.5 g/dL (6.4-8.2); SODIUM,NA 137 mmol/L (136-145)
[2023-10-16 17:24] LABS: ESTIMATED GFR 81 mL/min (>=60)
[2023-10-16 17:36] LABS: B-TYPE NATRIURETIC PEPTIDE,BNP 48 pg/ml (0-100)
[2023-10-16 17:38] LABS: APPEARANCE,URINE CLEAR (CLEAR); BILIRUBIN,URINE NEGATIVE (NEGATIVE); COLOR,URINE YELLOW (YELLOW); GLUCOSE,URINE NEGATIVE (NEGATIVE); KETONES,URINE NEGATIVE (NEGATIVE); LEUKOCYTE ESTERASE,URINE TRACE (NEGATIVE); NITRITE,URINE NEGATIVE (NEGATIVE); OCCULT BLOOD,URINE NEGATIVE (NEGATIVE); PROTEIN,URINE TRACE (NEGATIVE); UROBILINOGEN,URINE 0.2 mg/dL (0.2-1.0)
[2023-10-16 17:42] LABS: AMPHETAMINES,URINE NEGATIVE (NEGATIVE); BARBITURATES,URINE NEGATIVE (NEGATIVE); BENZODIAZEPINE,URINE POSITIVE (NEGATIVE); MDMA (ECSTASY), URINE NEGATIVE (NEGATIVE); METHADONE,URINE NEGATIVE (NEGATIVE); METHAMPHETAMINES,URINE NEGATIVE (NEGATIVE); OPIATES,URINE NEGATIVE (NEGATIVE); OXYCODONE,URINE NEGATIVE (NEGATIVE); PHENCYCLIDINE,URINE NEGATIVE (NEGATIVE); TCA,URINE NEGATIVE (NEGATIVE)
[2023-10-16 17:49] LABS: BACTERIA,URINE MODERATE /HPF (0-FEW/HPF); EPITHELIAL CELLS,URINE FEW /HPF (NOT SEEN); MUCUS,URINE MODERATE /LPF (NOT SEEN); RBC,URINE 0-5 /HPF (0-5)
[2023-10-16] MEDS ORDERED: Acetaminophen 500 MG Tab PO ONE (18:06)
[2023-10-16 18:42] VITALS: BP 143/81; PULSE 70
== END 2023-10-16 20:10 | disposition home or self-care (01) ==
LOC: DL.ED 16:14
DX: T82.7XXA Infection and inflammatory reaction due to other cardiac and vascular devices, implants and grafts, initial encounter (principal); L03.313 Cellulitis of chest wall; G89.29 Other chronic pain; I25.10 Atherosclerotic heart disease of native coronary artery without angina pectoris; I25.2 Old myocardial infarction; I10 Essential (primary) hypertension; E78.00 Pure hypercholesterolemia, unspecified; K21.9 Gastro-esophageal reflux disease without esophagitis; M10.9 Gout, unspecified; E03.9 Hypothyroidism, unspecified; Z86.16 Personal history of COVID-19; Z88.8 Allergy status to other drugs, medicaments and biological substances; Z88.5 Allergy status to narcotic agent; Z79.82 Long term (current) use of aspirin; Z79.899 Other long term (current) drug therapy; Z79.01 Long term (current) use of anticoagulants; Z20.822 Contact with and (suspected) exposure to COVID-19
CPT/HCPCS: 0241U; 36415; 71045; 80053; 80305-QW; 81001; 83605; 83735; 83880; 84145; 84484; 85025; 85610; 85730; 86140; 87040; 87070; 87077; 87086; 87088; 87186; 93005; 93010; 96365; 99284; 99284-25; A9270-GY; J3370; J3490; J7050

== ENCOUNTER 2023-11-04 13:30 | Emergency (ER) | payer MEDICARE, BC ==
[2023-11-04 14:25] VITALS: BP 123/72; PULSE 70
[2023-11-04] MEDS ORDERED: Lactulose Soln 10 GM/15 ML 30 ML UD Cup PO ONE (17:49)
[2023-11-04] MEDS ORDERED: Methylnaltrexone 12 MG/0.6 ML SDV SUBCUT ONE (17:49)
== END 2023-11-04 18:14 | disposition home or self-care (01) ==
LOC: DL.ED 13:30
DX: K59.00 Constipation, unspecified (principal); I25.10 Atherosclerotic heart disease of native coronary artery without angina pectoris; I10 Essential (primary) hypertension; I25.2 Old myocardial infarction; E78.00 Pure hypercholesterolemia, unspecified; M10.9 Gout, unspecified; E03.9 Hypothyroidism, unspecified; Z86.16 Personal history of COVID-19; Z79.82 Long term (current) use of aspirin; Z79.899 Other long term (current) drug therapy; Z79.01 Long term (current) use of anticoagulants; Z88.8 Allergy status to other drugs, medicaments and biological substances; Z88.5 Allergy status to narcotic agent
CPT/HCPCS: 74018; 96372; 99283; A9270-GY; J2212-GY

== ENCOUNTER 2023-11-14 09:07 | Inpatient (IN) | payer MEDICARE, BC ==
[2023-11-14 10:09] LABS: BASOPHILS PERCENT AUTO 0.1 % (0.0-1.0); HEMATOCRIT 45.7 % (40.0-54.0); HEMOGLOBIN 14.6 g/dL (14.0-18.0); LYMPHOCYTES PERCENT AUTO 4.8 % (20.5-50.1); MEAN CORPUSCULAR HEMOGLOBIN 29.9 pg (27.0-34.0); MEAN CORPUSCULAR HGB CONC 31.9 g/dL (33.0-35.0); MEAN CORPUSCULAR VOLUME 93.6 fL (80-100); MONOCYTES PERCENT AUTO 6.7 % (2-8); NEUTROPHILS PERCENT AUTO 88.4 % (42.2-75.2); PLATELET COUNT,PLT 216 10^3/uL (150-450); RED BLOOD CELL COUNT 4.88 10^6/uL (4.6-6.2); WHITE BLOOD CELL COUNT,WBC 19.5 10^3/uL (5.0-10.0)
[2023-11-14] MEDS: Sodium Chloride 0.9% 10 ML Syringe FLUSH PRN (10:18)
[2023-11-14] MEDS ORDERED: cefTRIAXone 1 GM Vial IVPUSH ONE (10:24)
[2023-11-14] MEDS ORDERED: Azithromycin 500 MG in Sodium Chloride 0.9% 250 ML IV ONE (10:24)
[2023-11-14 10:33] LABS: A/G RATIO 0.9; ALANINE AMINOTRANSFERASE,ALT 20 U/L (16-63); ALBUMIN 3.6 g/dL (3.4-5.0); ALKALINE PHOSPHATASE 70 U/L (46-116); ASPARTATE AMNIOTRANSFERASE,AST 21 U/L (15-37); BILIRUBIN TOTAL 0.6 mg/dL (0.2-1.0); BLOOD UREA NITROGEN,BUN 30 mg/dL (7-18); BUN/CREATININE RATIO 30.9 (No establ ref range); CALCIUM 9.3 mg/dL (8.5-10.1); CARBON DIOXIDE,CO2 28 mmol/L (21-32); CHLORIDE,CL 104 mmol/L (98-107); CREATININE 0.97 mg/dL (0.70-1.30); GLUCOSE RANDOM 163 mg/dL (70-99); PROTEIN TOTAL,TP 7.7 g/dL (6.4-8.2); SODIUM,NA 144 mmol/L (136-145)
[2023-11-14 10:39] LABS: ESTIMATED GFR 76 mL/min (>=60)
[2023-11-14 10:45] LABS: B-TYPE NATRIURETIC PEPTIDE,BNP 220 pg/ml (0-100)
[2023-11-14] MEDS ORDERED: Sodium Chloride 0.9% 1,000 ML IV ONE (11:02)
[2023-11-14 11:12] LABS: INFLUENZA A NAA NEGATIVE (NEGATIVE); INFLUENZA B NAA NEGATIVE (NEGATIVE); RESPIRATORY SYNCYTIAL VIR NAA POSITIVE (NEGATIVE)
[2023-11-14] MEDS ORDERED: Sodium Chloride 0.9% 500 ML IV SCH (11:15)
[2023-11-14 11:17] LABS: CORONAVIRUS COVID-19 NAA POSITIVE (NEGATIVE)
[2023-11-14] MEDS ORDERED: Polyethylene Glycol 3350 Powder 17 GM Packet PO PRN (11:29)
[2023-11-14] MEDS ORDERED: Acetaminophen 325 MG Tab PO PRN (11:29)
[2023-11-14] MEDS ORDERED: Ondansetron 4 MG/2 ML SDV IVPUSH PRN (11:29)
[2023-11-14] MEDS ORDERED: Magnesium Hydroxide 400 MG/5 ML Susp 30 ML Cup PO PRN (11:29)
[2023-11-14] MEDS ORDERED: Naloxone 2 MG/2 ML Syringe IVPUSH PRN (11:29)
[2023-11-14] MEDS ORDERED: Sennosides/Docusate Sodium 50-8.6 MG Tab PO PRN (11:29)
[2023-11-14] MEDS ORDERED: traMADol 50 MG Tab PO PRN (11:32)
[2023-11-14] MEDS ORDERED: Dexamethasone 4 MG/ML SDV IVPUSH ONE (11:34)
[2023-11-14] MEDS ORDERED: Glucagon,Human Recombinant 1 MG Vial IM PRN (11:35)
[2023-11-14] MEDS ORDERED: 50% Dextrose in Water 50 ML Syringe IVPUSH PRN (11:35)
[2023-11-14] MEDS ORDERED: Sodium Chloride 0.9% 1,000 ML IV SCH (11:45)
[2023-11-14 11:58] LABS: INR 2.8 (0.9-1.2); PROTHROMBIN TIME 27.5 SEC (9.0-12.0)
[2023-11-14] MEDS ORDERED: REMDESIVIR 200 MG in Sodium Chloride 0.9% 250 ML IV ONE (12:00)
[2023-11-14] MEDS ORDERED: guaiFENesin 600 MG Tab.ER PO ONE (12:17)
[2023-11-14] MEDS ORDERED: guaiFENesin/Dextromethorphan 100-10 MG/5 ML Soln 5 ML Cup PO PRN (12:17)
[2023-11-14] MEDS: Insulin Lispro 100 Units/ML 3 ML Vial SUBCUT SCH ×2 (12:57→17:17)
[2023-11-14] MEDS: Albuterol/Ipratropium 3.0-0.5 MG/3 ML Neb Soln NEB PRN ×2 (14:29→17:10)
[2023-11-14] MEDS ORDERED: Scopalamine 1mg/3day Transdermal Patch TRDERM PRN (14:49)
[2023-11-14] MEDS: Atropine 1% Ophth Soln 5 ML Bottle SL SCH ×3 (17:08→23:44)
[2023-11-14] MEDS: Pantoprazole 40 MG Tab.CR PO SCH (17:09)
[2023-11-14] MEDS ORDERED: Albuterol/Ipratropium 3.0-0.5 MG/3 ML Neb Soln NEB PRN (18:03)
[2023-11-14] MEDS: Albuterol/Ipratropium 3.0-0.5 MG/3 ML Neb Soln NEB SCH (20:12)
[2023-11-14] MEDS: Saccharomyces Boulardii (Probiotic) 250 MG Cap PO SCH (20:12)
[2023-11-14] MEDS: guaiFENesin 600 MG Tab.ER PO SCH (20:12)
[2023-11-15] MEDS: Albuterol/Ipratropium 3.0-0.5 MG/3 ML Neb Soln NEB SCH ×7 (00:53→21:55)
[2023-11-15] MEDS: Atropine 1% Ophth Soln 5 ML Bottle SL SCH ×6 (00:53→20:16)
[2023-11-15] MEDS ORDERED: Benzocaine/Cetylpyridinium/Menthol Lozenge MUCMEM PRN (04:54)
[2023-11-15] MEDS: Pantoprazole 40 MG Tab.CR PO SCH ×3 (05:10→20:19)
[2023-11-15] MEDS ORDERED: Dexamethasone 4 MG/ML SDV IVPUSH ONE (05:16)
[2023-11-15 06:57] LABS: INR 3.5 (0.9-1.2); PROTHROMBIN TIME 33.9 SEC (9.0-12.0)
[2023-11-15 07:10] LABS: ALANINE AMINOTRANSFERASE,ALT 19 U/L (16-63); ALBUMIN 2.7 g/dL (3.4-5.0); ALKALINE PHOSPHATASE 59 U/L (46-116); ANION GAP 12.7 mEq/L (7-13); ASPARTATE AMNIOTRANSFERASE,AST 20 U/L (15-37); BILIRUBIN TOTAL 0.5 mg/dL (0.2-1.0); BLOOD UREA NITROGEN,BUN 34 mg/dL (7-18); BUN/CREATININE RATIO 44.2 (No establ ref range); CALCIUM 8.8 mg/dL (8.5-10.1); CARBON DIOXIDE,CO2 30 mmol/L (21-32); CHLORIDE,CL 106 mmol/L (98-107); CREATININE 0.77 mg/dL (0.70-1.30); EST CRCL DRUG DOSING (CG) 69.79 mL/min; GLUCOSE RANDOM 124 mg/dL (70-99); MAGNESIUM 1.8 mg/dL (1.8-2.4); POTASSIUM,K 3.7 mmol/L (3.5-5.1); PROTEIN TOTAL,TP 6.3 g/dL (6.4-8.2); SODIUM,NA 145 mmol/L (136-145)
[2023-11-15 07:11] LABS: A/G RATIO 0.75; ESTIMATED GFR 87 mL/min (>=60)
[2023-11-15 07:12] LABS: C-REACTIVE PROTEIN > 25.00 ng/dL (<=0.50)
[2023-11-15 07:21] LABS: HEMATOCRIT 39.3 % (40.0-54.0); HEMOGLOBIN 12.4 g/dL (14.0-18.0); MEAN CORPUSCULAR HEMOGLOBIN 29.9 pg (27.0-34.0); MEAN CORPUSCULAR HGB CONC 31.6 g/dL (33.0-35.0); MEAN CORPUSCULAR VOLUME 94.7 fL (80-100); RED BLOOD CELL COUNT 4.15 10^6/uL (4.6-6.2); WHITE BLOOD CELL COUNT,WBC 13.3 10^3/uL (5.0-10.0)
[2023-11-15] MEDS ORDERED: Dexamethasone 6 MG TABLET PO SCH (08:00)
[2023-11-15] MEDS: Insulin Lispro 100 Units/ML 3 ML Vial SUBCUT SCH ×3 (09:05→16:54)
[2023-11-15] MEDS: Furosemide 20 MG/2 ML VIAL IVPUSH SCH (09:07)
[2023-11-15] MEDS: Saccharomyces Boulardii (Probiotic) 250 MG Cap PO SCH ×2 (09:07→20:17)
[2023-11-15] MEDS: guaiFENesin 600 MG Tab.ER PO SCH ×2 (09:07→20:19)
[2023-11-15] MEDS: cefTRIAXone 1 GM Vial IVPUSH SCH (09:10)
[2023-11-15] MEDS: Azithromycin 500 MG in Sodium Chloride 0.9% 250 ML IV SCH (09:21)
[2023-11-15] MEDS: REMDESIVIR 100 MG in Sodium Chloride 0.9% 100 ML IV SCH (10:30)
[2023-11-15] MEDS ORDERED: diphenhydrAMINE 25 MG Tab PO PRN (18:07)
[2023-11-15] MEDS ORDERED: [UNRECOGNIZED DRUG - OTHER] RC PRN (18:07)
[2023-11-15] MEDS ORDERED: SODIUM PHOSPHATE MONO DIBASIC RC PRN (18:07)
[2023-11-15] MEDS: traZODone 50 MG Tab PO SCH (20:17)
[2023-11-15] MEDS: Potassium Chloride 10 MEQ Tab.ER PO SCH (20:18)
[2023-11-15] MEDS: Sennosides/Docusate Sodium 50-8.6 MG Tab PO SCH (20:18)
[2023-11-15] MEDS: Carvedilol 6.25 MG Tab PO SCH (20:18)
[2023-11-15] MEDS: atorvaSTATin 10 MG Tab PO SCH (20:19)
[2023-11-15] MEDS: Tamsulosin 0.4 MG Cap.ER PO SCH (20:19)
[2023-11-15] MEDS: Benzocaine/Cetylpyridinium/Menthol Lozenge MUCMEM SCH ×2 (20:22→21:55)
[2023-11-15] MEDS: LORazepam 0.5 MG Tab PO SCH (23:38)
[2023-11-15] MEDS: HYDROmorphone 0.5 MG/0.5 ML Syringe IVPUSH PRN (23:39)
[2023-11-16] MEDS: Atropine 1% Ophth Soln 5 ML Bottle SL SCH ×6 (01:50→21:56)
[2023-11-16] MEDS: Albuterol/Ipratropium 3.0-0.5 MG/3 ML Neb Soln NEB SCH ×6 (01:50→17:18)
[2023-11-16] MEDS: Benzocaine/Cetylpyridinium/Menthol Lozenge MUCMEM SCH ×6 (03:01→22:56)
[2023-11-16] MEDS ORDERED: Acetaminophen/HYDROcodone 325-5 MG Tab PO PRN (04:31)
[2023-11-16] MEDS ORDERED: Diclofenac Sodium 1% Gel 100 GM Tube TOP PRN (06:00)
[2023-11-16] MEDS: HYDROmorphone 0.5 MG/0.5 ML Syringe IVPUSH PRN (06:05)
[2023-11-16] MEDS: Levothyroxine 112 MCG Tab PO SCH (06:05)
[2023-11-16 06:21] LABS: HEMATOCRIT 42.3 % (40.0-54.0); HEMOGLOBIN 13.6 g/dL (14.0-18.0); MEAN CORPUSCULAR HEMOGLOBIN 29.4 pg (27.0-34.0); MEAN CORPUSCULAR HGB CONC 32.2 g/dL (33.0-35.0); MEAN CORPUSCULAR VOLUME 91.6 fL (80-100); RED BLOOD CELL COUNT 4.62 10^6/uL (4.6-6.2); WHITE BLOOD CELL COUNT,WBC 15.4 10^3/uL (5.0-10.0)
[2023-11-16 06:35] LABS: INR 2.4 (0.9-1.2); PROTHROMBIN TIME 23.4 SEC (9.0-12.0)
[2023-11-16 06:41] LABS: ALBUMIN 2.8 g/dL (3.4-5.0); ANION GAP 11.5 mEq/L (7-13); BILIRUBIN DIRECT 0.3 mg/dL (0.0-0.2); BILIRUBIN TOTAL 0.7 mg/dL (0.2-1.0); BUN/CREATININE RATIO 46.6 (No establ ref range); C-REACTIVE PROTEIN 14.67 ng/dL (<=0.50); CALCIUM 8.8 mg/dL (8.5-10.1); CREATININE 0.73 mg/dL (0.70-1.30); EST CRCL DRUG DOSING (CG) 73.61 mL/min; MAGNESIUM 1.9 mg/dL (1.8-2.4); POTASSIUM,K 3.5 mmol/L (3.5-5.1); PROTEIN TOTAL,TP 6.5 g/dL (6.4-8.2)
[2023-11-16 06:42] LABS: A/G RATIO 0.76
[2023-11-16] MEDS: cefTRIAXone 1 GM Vial IVPUSH SCH (08:37)
[2023-11-16] MEDS: Azithromycin 500 MG in Sodium Chloride 0.9% 250 ML IV SCH (08:38)
[2023-11-16] MEDS: Sennosides/Docusate Sodium 50-8.6 MG Tab PO SCH ×2 (08:39→21:49)
[2023-11-16] MEDS: Insulin Lispro 100 Units/ML 3 ML Vial SUBCUT SCH ×3 (08:39→17:23)
[2023-11-16] MEDS: Saccharomyces Boulardii (Probiotic) 250 MG Cap PO SCH ×2 (08:40→21:49)
[2023-11-16] MEDS: Potassium Chloride 10 MEQ Tab.ER PO SCH ×2 (08:40→21:49)
[2023-11-16] MEDS: Aspirin 81 MG Tab.EC PO SCH (08:40)
[2023-11-16] MEDS: Loratadine 10 MG Tab PO SCH (08:40)
[2023-11-16] MEDS: Carvedilol 6.25 MG Tab PO SCH ×2 (08:41→21:50)
[2023-11-16] MEDS: Dexamethasone 6 MG TABLET PO SCH (08:43)
[2023-11-16] MEDS: DULoxetine 30 MG Cap PO SCH (08:43)
[2023-11-16] MEDS: Bumetanide 1 MG Tab PO SCH (08:43)
[2023-11-16] MEDS: Cholecalciferol (Vitamin D3) 25 MCG Tab PO SCH (08:43)
[2023-11-16] MEDS: Lutein/Minerals/Vit A,C & E Tab PO SCH (08:43)
[2023-11-16] MEDS: Pantoprazole 40 MG Tab.CR PO SCH ×2 (08:43→21:51)
[2023-11-16] MEDS: Ciprofloxacin 500 MG Tab PO SCH (08:44)
[2023-11-16] MEDS: Furosemide 20 MG/2 ML VIAL IVPUSH SCH (08:44)
[2023-11-16] MEDS: guaiFENesin 600 MG Tab.ER PO SCH ×2 (08:44→21:49)
[2023-11-16] MEDS ORDERED: LORazepam 0.5 MG Tab PO SCH (09:00)
[2023-11-16] MEDS ORDERED: Warfarin 2.5 MG Tab PO SCH (09:00)
[2023-11-16] MEDS: Carbamide Peroxide 6.5% Otic Soln 15 ML Bottle EARBOTH SCH (11:43)
[2023-11-16] MEDS: REMDESIVIR 100 MG in Sodium Chloride 0.9% 100 ML IV SCH (11:56)
[2023-11-16] MEDS ORDERED: Warfarin 2.5 MG Tab PO ONE (14:00)
[2023-11-16] MEDS: atorvaSTATin 10 MG Tab PO SCH (21:50)
[2023-11-16] MEDS: traZODone 50 MG Tab PO SCH (21:50)
[2023-11-16] MEDS: Tamsulosin 0.4 MG Cap.ER PO SCH (21:50)
[2023-11-16] MEDS: LORazepam 0.5 MG Tab PO SCH (21:51)
[2023-11-16] MEDS: MINOCYCLINE 100 MG PO SCH (21:56)
[2023-11-17] MEDS: Atropine 1% Ophth Soln 5 ML Bottle SL SCH ×7 (01:12→22:41)
[2023-11-17] MEDS: Benzocaine/Cetylpyridinium/Menthol Lozenge MUCMEM SCH ×4 (01:50→13:30)
[2023-11-17] MEDS: Levothyroxine 112 MCG Tab PO SCH ×2 (04:36→05:19)
[2023-11-17] MEDS: Albuterol/Ipratropium 3.0-0.5 MG/3 ML Neb Soln NEB SCH ×4 (05:20→17:20)
[2023-11-17 06:34] LABS: HEMATOCRIT 44.8 % (40.0-54.0); HEMOGLOBIN 14.7 g/dL (14.0-18.0); MEAN CORPUSCULAR HEMOGLOBIN 29.5 pg (27.0-34.0); MEAN CORPUSCULAR HGB CONC 32.8 g/dL (33.0-35.0); RED BLOOD CELL COUNT 4.98 10^6/uL (4.6-6.2); WHITE BLOOD CELL COUNT,WBC 12.5 10^3/uL (5.0-10.0)
[2023-11-17 06:47] LABS: INR 2.2 (0.9-1.2)
[2023-11-17 06:52] LABS: ANION GAP 14.6 mEq/L (7-13); BILIRUBIN DIRECT 0.3 mg/dL (0.0-0.2); BUN/CREATININE RATIO 40.2 (No establ ref range); C-REACTIVE PROTEIN 19.27 ng/dL (<=0.50); CALCIUM 9.3 mg/dL (8.5-10.1); CREATININE 0.82 mg/dL (0.70-1.30); EST CRCL DRUG DOSING (CG) 65.53 mL/min; MAGNESIUM 1.9 mg/dL (1.8-2.4); POTASSIUM,K 3.6 mmol/L (3.5-5.1)
[2023-11-17 06:56] LABS: A/G RATIO 0.75
[2023-11-17] MEDS: Insulin Lispro 100 Units/ML 3 ML Vial SUBCUT SCH ×3 (09:25→17:34)
[2023-11-17] MEDS: Azithromycin 500 MG in Sodium Chloride 0.9% 250 ML IV SCH (09:25)
[2023-11-17] MEDS: REMDESIVIR 100 MG in Sodium Chloride 0.9% 100 ML IV SCH (09:25)
[2023-11-17] MEDS: Saccharomyces Boulardii (Probiotic) 250 MG Cap PO SCH ×3 (09:26→22:58)
[2023-11-17] MEDS: cefTRIAXone 1 GM Vial IVPUSH SCH (09:26)
[2023-11-17] MEDS: Lutein/Minerals/Vit A,C & E Tab PO SCH ×2 (09:26→19:18)
[2023-11-17] MEDS: Aspirin 81 MG Tab.EC PO SCH ×2 (09:26→19:17)
[2023-11-17] MEDS: DULoxetine 30 MG Cap PO SCH ×2 (09:26→19:17)
[2023-11-17] MEDS: Furosemide 20 MG/2 ML VIAL IVPUSH SCH (09:26)
[2023-11-17] MEDS: Sennosides/Docusate Sodium 50-8.6 MG Tab PO SCH ×3 (09:26→22:59)
[2023-11-17] MEDS: Dexamethasone 6 MG TABLET PO SCH ×2 (09:27→19:17)
[2023-11-17] MEDS: Carvedilol 6.25 MG Tab PO SCH ×3 (09:27→22:37)
[2023-11-17] MEDS: Ciprofloxacin 500 MG Tab PO SCH ×2 (09:27→19:17)
[2023-11-17] MEDS: Bumetanide 1 MG Tab PO SCH ×2 (09:27→19:17)
[2023-11-17] MEDS: guaiFENesin 600 MG Tab.ER PO SCH ×3 (09:27→22:37)
[2023-11-17] MEDS: Pantoprazole 40 MG Tab.CR PO SCH ×3 (09:27→22:59)
[2023-11-17] MEDS: Cholecalciferol (Vitamin D3) 25 MCG Tab PO SCH ×2 (09:27→19:18)
[2023-11-17] MEDS: Potassium Chloride 10 MEQ Tab.ER PO SCH ×3 (09:27→22:58)
[2023-11-17] MEDS: Loratadine 10 MG Tab PO SCH ×2 (09:27→19:17)
[2023-11-17] MEDS: MINOCYCLINE 100 MG PO SCH ×3 (09:31→22:59)
[2023-11-17] MEDS: ARIPIPRAZOLE 5 MG PO SCH ×2 (09:32→19:18)
[2023-11-17] MEDS: Carbamide Peroxide 6.5% Otic Soln 15 ML Bottle EARBOTH SCH (09:33)
[2023-11-17] MEDS ORDERED: Warfarin 2.5 MG Tab PO ONE (14:00)
[2023-11-17] MEDS: Dextrose 5%-0.9% NaCl 1,000 ML IV SCH (19:27)
[2023-11-17] MEDS: Sodium Chloride 0.9% 10 ML Syringe FLUSH PRN (19:33)
[2023-11-17] MEDS: LORazepam 0.5 MG Tab PO SCH (22:31)
[2023-11-17] MEDS: traZODone 50 MG Tab PO SCH (22:32)
[2023-11-17] MEDS: Tamsulosin 0.4 MG Cap.ER PO SCH (22:58)
[2023-11-17] MEDS: atorvaSTATin 10 MG Tab PO SCH (22:59)
[2023-11-18] MEDS: Atropine 1% Ophth Soln 5 ML Bottle SL SCH ×6 (01:26→22:44)
[2023-11-18] MEDS: Levothyroxine 112 MCG Tab PO SCH (05:08)
[2023-11-18] MEDS: Albuterol/Ipratropium 3.0-0.5 MG/3 ML Neb Soln NEB SCH ×4 (06:00→17:43)
[2023-11-18 06:40] LABS: HEMATOCRIT 41.8 % (40.0-54.0); HEMOGLOBIN 13.7 g/dL (14.0-18.0); MEAN CORPUSCULAR HEMOGLOBIN 29.5 pg (27.0-34.0); MEAN CORPUSCULAR HGB CONC 32.8 g/dL (33.0-35.0); MEAN CORPUSCULAR VOLUME 90.1 fL (80-100); RED BLOOD CELL COUNT 4.64 10^6/uL (4.6-6.2); WHITE BLOOD CELL COUNT,WBC 11.1 10^3/uL (5.0-10.0)
[2023-11-18 06:50] LABS: ALBUMIN 2.7 g/dL (3.4-5.0); ANION GAP 13.1 mEq/L (7-13); BILIRUBIN DIRECT 0.3 mg/dL (0.0-0.2); BILIRUBIN TOTAL 0.9 mg/dL (0.2-1.0); BUN/CREATININE RATIO 47.4 (No establ ref range); C-REACTIVE PROTEIN 10.97 ng/dL (<=0.50); CALCIUM 8.9 mg/dL (8.5-10.1); CREATININE 0.76 mg/dL (0.70-1.30); EST CRCL DRUG DOSING (CG) 70.71 mL/min; MAGNESIUM 2.2 mg/dL (1.8-2.4); POTASSIUM,K 3.1 mmol/L (3.5-5.1); PROTEIN TOTAL,TP 6.4 g/dL (6.4-8.2)
[2023-11-18 06:57] LABS: INR 2.9 (0.9-1.2); PROTHROMBIN TIME 28.4 SEC (9.0-12.0)
[2023-11-18 07:06] LABS: A/G RATIO 0.73
[2023-11-18] MEDS: Azithromycin 500 MG in Sodium Chloride 0.9% 250 ML IV SCH (10:00)
[2023-11-18] MEDS: cefTRIAXone 1 GM Vial IVPUSH SCH (10:01)
[2023-11-18] MEDS: REMDESIVIR 100 MG in Sodium Chloride 0.9% 100 ML IV SCH (10:01)
[2023-11-18] MEDS: Furosemide 20 MG/2 ML VIAL IVPUSH SCH (10:01)
[2023-11-18] MEDS: Insulin Lispro 100 Units/ML 3 ML Vial SUBCUT SCH ×3 (10:02→17:06)
[2023-11-18] MEDS: Bumetanide 1 MG Tab PO SCH ×2 (10:26→14:09)
[2023-11-18] MEDS: Ciprofloxacin 500 MG Tab PO SCH ×2 (10:26→14:08)
[2023-11-18] MEDS: Dexamethasone 6 MG TABLET PO SCH ×2 (10:26→14:09)
[2023-11-18] MEDS: Carvedilol 6.25 MG Tab PO SCH ×2 (10:27→22:37)
[2023-11-18] MEDS: Loratadine 10 MG Tab PO SCH ×2 (10:27→14:08)
[2023-11-18] MEDS: DULoxetine 30 MG Cap PO SCH ×2 (10:27→14:09)
[2023-11-18] MEDS: Saccharomyces Boulardii (Probiotic) 250 MG Cap PO SCH ×2 (10:28→22:37)
[2023-11-18] MEDS: Pantoprazole 40 MG Tab.CR PO SCH ×2 (10:28→22:38)
[2023-11-18] MEDS: MINOCYCLINE 100 MG PO SCH ×2 (10:28→22:38)
[2023-11-18] MEDS: ARIPIPRAZOLE 5 MG PO SCH (10:28)
[2023-11-18] MEDS: Lutein/Minerals/Vit A,C & E Tab PO SCH ×2 (10:28→14:09)
[2023-11-18] MEDS: Aspirin 81 MG Tab.EC PO SCH ×2 (10:28→14:09)
[2023-11-18] MEDS: Potassium Chloride 10 MEQ Tab.ER PO SCH ×2 (10:28→22:37)
[2023-11-18] MEDS: guaiFENesin 600 MG Tab.ER PO SCH ×2 (10:28→22:38)
[2023-11-18] MEDS: Cholecalciferol (Vitamin D3) 25 MCG Tab PO SCH ×2 (10:29→14:09)
[2023-11-18] MEDS: Sennosides/Docusate Sodium 50-8.6 MG Tab PO SCH ×2 (10:29→22:38)
[2023-11-18] MEDS ORDERED: Warfarin 2.5 MG Tab PO ONE (14:00)
[2023-11-18] MEDS: Carbamide Peroxide 6.5% Otic Soln 15 ML Bottle EARBOTH SCH (18:13)
[2023-11-18] MEDS: LORazepam 0.5 MG Tab PO SCH (22:36)
[2023-11-18] MEDS: atorvaSTATin 10 MG Tab PO SCH (22:37)
[2023-11-18] MEDS: Tamsulosin 0.4 MG Cap.ER PO SCH (22:37)
[2023-11-18] MEDS: traZODone 50 MG Tab PO SCH (22:38)
[2023-11-18] MEDS: HYDROmorphone 0.5 MG/0.5 ML Syringe IVPUSH PRN (23:19)
[2023-11-19] MEDS: Atropine 1% Ophth Soln 5 ML Bottle SL SCH ×5 (01:43→17:21)
[2023-11-19] MEDS: HYDROmorphone 0.5 MG/0.5 ML Syringe IVPUSH PRN ×5 (02:55→18:04)
[2023-11-19] MEDS: Dextrose 5%-0.9% NaCl 1,000 ML IV SCH (04:41)
[2023-11-19] MEDS: Albuterol/Ipratropium 3.0-0.5 MG/3 ML Neb Soln NEB SCH ×5 (05:15→19:30)
[2023-11-19] MEDS: Levothyroxine 112 MCG Tab PO SCH (05:32)
[2023-11-19 06:43] LABS: HEMATOCRIT 46.6 % (40.0-54.0); HEMOGLOBIN 15.3 g/dL (14.0-18.0); MEAN CORPUSCULAR HEMOGLOBIN 29.7 pg (27.0-34.0); MEAN CORPUSCULAR HGB CONC 32.8 g/dL (33.0-35.0); MEAN CORPUSCULAR VOLUME 90.3 fL (80-100); RED BLOOD CELL COUNT 5.16 10^6/uL (4.6-6.2); WHITE BLOOD CELL COUNT,WBC 12.6 10^3/uL (5.0-10.0)
[2023-11-19 07:01] LABS: A/G RATIO 0.74; ALBUMIN 2.8 g/dL (3.4-5.0); ANION GAP 14.8 mEq/L (7-13); BILIRUBIN DIRECT 0.4 mg/dL (0.0-0.2); BILIRUBIN TOTAL 1.2 mg/dL (0.2-1.0); BUN/CREATININE RATIO 48.8 (No establ ref range); C-REACTIVE PROTEIN 10.99 ng/dL (<=0.50); CALCIUM 9.1 mg/dL (8.5-10.1); CREATININE 0.82 mg/dL (0.70-1.30); EST CRCL DRUG DOSING (CG) 65.53 mL/min; MAGNESIUM 2.2 mg/dL (1.8-2.4); POTASSIUM,K 2.8 mmol/L (3.5-5.1); PROTEIN TOTAL,TP 6.6 g/dL (6.4-8.2)
[2023-11-19] MEDS ORDERED: Potassium Chloride 20 MEQ in Premix Bag 1 BAG IV ONE (07:43)
[2023-11-19] MEDS: cefTRIAXone 1 GM Vial IVPUSH SCH (09:02)
[2023-11-19] MEDS: Furosemide 20 MG/2 ML VIAL IVPUSH SCH (09:06)
[2023-11-19] MEDS: Bumetanide 1 MG Tab PO SCH (10:04)
[2023-11-19] MEDS: Insulin Lispro 100 Units/ML 3 ML Vial SUBCUT SCH ×3 (10:04→17:10)
[2023-11-19] MEDS: Ciprofloxacin 500 MG Tab PO SCH (10:04)
[2023-11-19] MEDS: Dexamethasone 6 MG TABLET PO SCH (10:04)
[2023-11-19] MEDS: Saccharomyces Boulardii (Probiotic) 250 MG Cap PO SCH (10:05)
[2023-11-19] MEDS: Aspirin 81 MG Tab.EC PO SCH (10:05)
[2023-11-19] MEDS: Carbamide Peroxide 6.5% Otic Soln 15 ML Bottle EARBOTH SCH (10:05)
[2023-11-19] MEDS: DULoxetine 30 MG Cap PO SCH (10:05)
[2023-11-19] MEDS: Lutein/Minerals/Vit A,C & E Tab PO SCH (10:05)
[2023-11-19] MEDS: Loratadine 10 MG Tab PO SCH (10:05)
[2023-11-19] MEDS: Carvedilol 6.25 MG Tab PO SCH (10:05)
[2023-11-19] MEDS: Potassium Chloride 10 MEQ Tab.ER PO SCH (10:06)
[2023-11-19] MEDS: Pantoprazole 40 MG Tab.CR PO SCH (10:06)
[2023-11-19] MEDS: guaiFENesin 600 MG Tab.ER PO SCH (10:06)
[2023-11-19] MEDS: MINOCYCLINE 100 MG PO SCH (10:06)
[2023-11-19] MEDS: ARIPIPRAZOLE 5 MG PO SCH (10:06)
[2023-11-19] MEDS: Cholecalciferol (Vitamin D3) 25 MCG Tab PO SCH (10:07)
[2023-11-19] MEDS: Sennosides/Docusate Sodium 50-8.6 MG Tab PO SCH (10:07)
[2023-11-19] MEDS: Azithromycin 500 MG in Sodium Chloride 0.9% 250 ML IV SCH ×2 (10:08→11:59)
[2023-11-19 10:14] LABS: INR 3.8 (0.9-1.2); PROTHROMBIN TIME 37.3 SEC (9.0-12.0)
[2023-11-19] MEDS: Potassium Chloride 20 MEQ in Premix Bag 1 BAG IV ONE ×2 (11:46→16:23)
[2023-11-19] MEDS ORDERED: Acetaminophen 650 MG Supp RECTAL PRN (11:48)
[2023-11-19 16:48] VITALS: BP 152/94
[2023-11-19 17:39] VITALS: PULSE 118
[2023-11-19] MEDS ORDERED: Potassium Chloride 10 MEQ in Premix Bag 1 BAG IV ONE (18:00)
[2023-11-19] MEDS ORDERED: LORazepam 2 MG/ML SDV IVPUSH PRN (18:26)
[2023-11-19] MEDS: Morphine 2 MG/ML SYRINGE IVPUSH PRN ×2 (21:04→23:39)
[2023-11-19] MEDS: Atropine 1% Ophth Soln 5 ML Bottle SL PRN ×2 (21:05→23:38)
[2023-11-20] MEDS: Morphine 2 MG/ML SYRINGE IVPUSH PRN ×2 (02:27→04:40)
[2023-11-20] MEDS: Atropine 1% Ophth Soln 5 ML Bottle SL PRN ×2 (02:27→04:39)
== END 2023-11-20 08:31 | disposition expired | DRG 177 ==
LOC: DL.ED 09:07 → DL.MS 10:59
PROVIDERS: ADMIT Internal Medicine; ATTEND Internal Medicine
PROC: 3E0333Z Introduction of Anti-inflammatory into Peripheral Vein, Percutaneous Approach (ICD-10-PCS; principal; 2023-11-14)
PROC: 8E0ZXY6 Isolation (ICD-10-PCS; 2023-11-14)
DX: J18.9 Pneumonia, unspecified organism (principal); I10 Essential (primary) hypertension; U07.1 COVID-19; I25.810 Atherosclerosis of coronary artery bypass graft(s) without angina pectoris; G93.41 Metabolic encephalopathy; I50.21 Acute systolic (congestive) heart failure; J12.82 Pneumonia due to coronavirus disease 2019; E87.20 Acidosis, unspecified; R78.81 Bacteremia; Z95.0 Presence of cardiac pacemaker; E87.1 Hypo-osmolality and hyponatremia; F05 Delirium due to known physiological condition; I25.10 Atherosclerotic heart disease of native coronary artery without angina pectoris; E78.00 Pure hypercholesterolemia, unspecified; Z51.5 Encounter for palliative care; Z66 Do not resuscitate; K59.09 Other constipation; K21.9 Gastro-esophageal reflux disease without esophagitis; M06.9 Rheumatoid arthritis, unspecified; E03.9 Hypothyroidism, unspecified; F32.A Depression, unspecified; T82.7XXD Infection and inflammatory reaction due to other cardiac and vascular devices, implants and grafts, subsequent encounter; I48.91 Unspecified atrial fibrillation; I11.0 Hypertensive heart disease with heart failure; R73.9 Hyperglycemia, unspecified; E87.6 Hypokalemia; M10.9 Gout, unspecified; R13.12 Dysphagia, oropharyngeal phase; Z88.8 Allergy status to other drugs, medicaments and biological substances; Z88.5 Allergy status to narcotic agent; Z79.82 Long term (current) use of aspirin; Z79.01 Long term (current) use of anticoagulants; Z79.899 Other long term (current) drug therapy; Z79.2 Long term (current) use of antibiotics; I25.2 Old myocardial infarction; Z95.2 Presence of prosthetic heart valve; Z95.1 Presence of aortocoronary bypass graft; Z95.810 Presence of automatic (implantable) cardiac defibrillator; Z86.73 Personal history of transient ischemic attack (TIA), and cerebral infarction without residual deficits; Z85.46 Personal history of malignant neoplasm of prostate; Z86.16 Personal history of COVID-19; Z98.49 Cataract extraction status, unspecified eye; Z98.890 Other specified postprocedural states; Z79.890 Hormone replacement therapy
CPT/HCPCS: 0241U; 36415; 70450; 71045; 80053; 82248; 82947; 83605; 83735; 83880; 84484; 85025; 85027; 85610; 86140; 87040; 87070; 87077; 87205; 93005; 93010; 94010; 94060; 94640; 94668; 94760; 94762; 99284; 99285; 82533; A9270-GY; J0248; J0456; J0696; J1100; J1170; J1815-GY; J1940; J2060; J2270; J3480; J3490; J7030; J7042; J7050; J7620-GY; J8540